=== PATIENT | female | born 1965 | race Caucasian/White ===

== ENCOUNTER 2018-12-04 05:40 | Day surgery (SDC) | payer OTHER ==
[2018-12-04] MEDS ORDERED: MIDAZOLAM 1 MG/ML 2 ML INJ (08:10)
[2018-12-04] MEDS ORDERED: FENTAnyl 50 MCG/ML VIAL (08:10)
== END 2018-12-04 12:03 | disposition home or self-care (01) ==
LOC: GIL 05:40
DX: K29.30 Chronic superficial gastritis without bleeding (principal)
CPT/HCPCS: 43239; 88305; 88312